=== PATIENT | female | born 1955 | race Caucasian/White ===

== ENCOUNTER 2018-11-02 01:46 | Outpatient (CLI) | payer OTHER | END 2018-11-02 01:47 | disposition home or self-care (01) | LOC: LABBT 01:46 | PROVIDERS: ATTEND Obstetrics & Gynecology | DX: Z01.818 Encounter for other preprocedural examination (principal); N95.0 Postmenopausal bleeding | CPT/HCPCS: 93005; 93010 ==

== ENCOUNTER 2018-11-07 10:58 | Day surgery (SDC) | payer OTHER ==
[2018-11-02 11:06] VITALS: BMI 27.0
[2018-11-02 12:02] LABS: Hemoglobin 15.4 g/dL (12.0-16.0); Mean Corpuscular HGB CONC 33.7 g/dL (32.0-36.0); Mean Corpuscular Hemoglobin 32.1 pg (27.0-31.0); Mean Corpuscular Volume 95.3 fL (78.0-98.0); Mean Platelet Volume 6.8 fL (7.4-10.4); Platelet Count 370 thou/uL (130-400); RBC Distribution Width 10.9 % (11.5-14.5); Red Blood Cell (RBC) Count 4.78 mill/uL (4.20-5.40); White Blood Cell (WBC) Count 4.6 thou/uL (4.8-10.8)
[2018-11-02 12:22] LABS: Anion Gap 14 mmol/L (10-20); BUN (Urea Nitrogen) 21 mg/dL (9.8-20.1); Calc. Creatinine Clearance 72 mL/min (70-130); Calcium 10.5 mg/dL (7.8-10.44); Carbon Dioxide 27 mmol/L (23-31); Chloride 102 mmol/L (98-107); Estimated GFR-MDRD 56; Glucose 103 mg/dL (80-115); Sodium 139 mmol/L (136-145)
[2018-11-07] MEDS ORDERED: Lidocaine 1% PF 5 ML VIAL ONE (11:17)
[2018-11-07] MEDS ORDERED: Ondansetron PF 4 MG/2 ML Vial ONE (11:17)
[2018-11-07] MEDS ORDERED: Dexamethasone 20 MG/5 ML VIAL ONE (11:17)
[2018-11-07] MEDS ORDERED: PROPOFOL 200 MG/20 ML VIAL ONE (11:17)
[2018-11-07] MEDS ORDERED: Gabapentin 300 MG CAP ONE (11:24)
[2018-11-07] MEDS ORDERED: Famotidine/PF 20 mg/2ml Vial ONE (11:24)
[2018-11-07] MEDS ORDERED: CeleCOXIB 100 MG CAP ONE (11:24)
[2018-11-07] MEDS ORDERED: Midazolam HCl 2 mg/2 ml Vial ONE ×2 (11:54→12:04)
[2018-11-07] MEDS ORDERED: Acetaminophen 500 MG TAB ONE (11:54)
[2018-11-07] MEDS ORDERED: Fentanyl 100 MCG/2 ML VIAL ONE (12:04)
[2018-11-07] MEDS ORDERED: Morphine 2 MG/ML SYRINGE ONE ×2 (13:48→14:10)
--- NOTE | 2018-11-08 08:56 | OP ---
DATE OF PROCEDURE: 11/07/2018 PREOPERATIVE DIAGNOSIS: Postmenopausal bleeding. POSTOPERATIVE DIAGNOSIS: Postmenopausal bleeding. PROCEDURES PERFORMED: Hysteroscopy with dilation and curettage. COMPLICATIONS: None. ESTIMATED BLOOD LOSS: None. FINDINGS: Normal external genitalia. Normal vaginal and cervical epithelium with some atrophy. Cervical stenosis was noted initially, 7 cm uterus with atrophic appearing endometrium, and bilateral fallopian tube ostia noted. INDICATIONS FOR THE PROCEDURE: Ms. Katerin Shetty is a 63-year-old female, who presented several months ago with postmenopausal bleeding. The patient was noted to have a 7 cm uterus with a 9 mm endometrial stripe. An endometrial biopsy was attempted in the clinic; however, unsuccessful due to cervical stenosis. Therefore, her hormone replacement therapy was discontinued and she was recommend to have a hysteroscopy D and C. DESCRIPTION OF PROCEDURE: The patient was brought to the operating room. She was placed under general anesthesia. The patient was placed in dorsal lithotomy position using Mark stirrups. She was prepped and draped in sterile fashion. An official time-out was performed. A single sided speculum was placed in the vagina. Anterior aspect of the cervix was grasped with single-tooth tenaculum. Cervix was sequentially dilated using Frank dilators, bringing up the cervical scar tissue. The uterine sound was inserted and noting the uterus to 7 cm in length. The [employer] hysteroscope was inserted through the cervical canal into the endometrial canal noting atrophic appearing endometrium. No other abnormalities were noted. The hysteroscope was then removed curette. A sharp dilation and curettage were then performed in a circumferential fashion for sampling of the endometrium. The instruments were removed from the vagina. All counts were correct x2. There were no complications. The patient was extubated without difficulty. Job ID: [id number]
== END 2018-11-07 15:11 | disposition home or self-care (01) ==
LOC: SDC 10:58
PROVIDERS: ATTEND Obstetrics & Gynecology
PROC: 0UDB8ZZ Extraction of Endometrium, Via Natural or Artificial Opening Endoscopic (ICD-10-PCS; principal; 2018-11-07)
DX: N95.0 Postmenopausal bleeding (principal); N95.1 Menopausal and female climacteric states; N88.2 Stricture and stenosis of cervix uteri; F32.9 Major depressive disorder, single episode, unspecified; F41.9 Anxiety disorder, unspecified; E03.9 Hypothyroidism, unspecified; Z79.899 Other long term (current) drug therapy
CPT/HCPCS: 80048; 84443; 85027; 86850; 86900; 86901; 88305; J1100; J2001; J2250; J2270; J2405; J2704; J3010; S0028

== ENCOUNTER 2019-02-06 12:34 | Outpatient (CLI) | payer OTHER ==
--- NOTE | 2019-02-06 14:10 | RAD ---
RIGHT FOOT 3 VIEWS: Date: 02/06/19 HISTORY: Contusion right foot, right foot pain. Dorsal pain along the 2nd-4th metatarsals. FINDINGS/IMPRESSION: There is a nondisplaced fracture involving the medial aspect of the base of the proximal phalanx of t he little toe/5th digit. POS: [facility]
== END 2019-02-06 12:35 | disposition home or self-care (01) ==
LOC: BICRAD 12:34
PROVIDERS: ATTEND Family Medicine
DX: S90.31XA Contusion of right foot, initial encounter (principal); S92.514A Nondisplaced fracture of proximal phalanx of right lesser toe(s), initial encounter for closed fracture